=== PATIENT | female | born 1975 | race Caucasian/White ===

== ENCOUNTER 2019-05-03 22:42 | Emergency (ER) | payer BC ==
[2019-05-03 23:21] LABS: CHLORIDE,CL 110 mmol/L (98-107); SODIUM,NA 144 mmol/L (136-145)
[2019-05-03] MEDS ORDERED: Potassium Chloride 20 MEQ Tab.ER PO ONE (23:24)
--- NOTE | 2019-05-03 23:30 | EDM.PDOC ---
ED HPI GENERAL MEDICAL PROBLEM - General Chief Complaint: Chest Pain Stated Complaint: chest pain resolved Time Seen by Provider: 05/03/19 22:50 Source of Information: Reports: Patient History Limitations: Reports: No Limitations - History of Present Illness INITIAL COMMENTS - FREE TEXT/NARRATIVE: Acute onset of left sided chest pain Has hx/o same in past HAs NTG at home Diid take NTG and pain is now resolved Here to be checked Onset: Sudden Duration: Hour(s): Location: Reports: Chest Quality: Reports: Sharp Severity: Moderate Associated Symptoms: Reports: Chest Pain - Related Data Allergies Allergy/AdvReac Type Severity Reaction Status Date / Time Penicillins Allergy Vomiting Verified 05/03/19 22:59 Home Meds: Home Meds Amlodipine/Valsartan/Hcthiazid [Bzlph-Nahjf-Yker 10-160-12.5MG] 1 each PO DAILY 05/03/19 [History] Desvenlafaxine [Desvenlafaxine ER] 50 mg PO DAILY 05/03/19 [History] Erenumab-Aooe [Aimovig Autoinjector] 1 injection SUBCUT Q30D 05/03/19 [History] Naltrexone 4.5 mg PO DAILY 05/03/19 [History] Nitroglycerin [Nitrostat] 0.4 mg SL ASDIRECTED 05/03/19 [History] Topiramate 1 tab PO DAILY 05/03/19 [History] hydrOXYzine HCL [Atarax] 25 - 50 mg PO BEDTIME PRN 05/03/19 [History] lamoTRIgine [Lamotrigine] 1 tab PO DAILY 05/03/19 [History] tiZANidine [Zanaflex] 4 mg PO Q8H PRN 05/03/19 [History] valACYclovir HCl [valACYclovir] 0.5 tab PO DAILY 05/03/19 [History] Past Medical History HEENT History: Reports: Impaired Vision Cardiovascular History: Reports: Angina, Hypertension Respiratory History: Reports: None Gastrointestinal History: Reports: GERD Genitourinary History: Reports: None [employer] History: Reports: Musculoskeletal History: Reports: Fibromyalgia Neurological History: Reports: Migraines Psychiatric History: Reports: Bipolar Endocrine/Metabolic History: Reports: Obesity/BMI 30+ Hematologic History: Reports: None Oncologic (Cancer) History: Reports: None Dermatologic History: Reports: Other (See Below) Other Dermatologic History: chronic cold sores - Infectious Disease History Infectious Disease History: Reports: Chicken Pox, Influenza - Past Surgical History HEENT Surgical History: Reports: Myringotomy w Tube(s) Cardiovascular Surgical History: Reports: None Respiratory Surgical History: Reports: None GI Surgical History: Reports: None Female Surgical History: Reports: Tubal Ligation Musculoskeletal Surgical History: Reports: None Social & Family History - Tobacco Use Smoking Status *Q: Former Smoker Used Tobacco, but Quit: Yes Month/Year Tobacco Last Used: August 2006 - Caffeine Use Caffeine Use: Reports: Coffee - Recreational Drug Use Recreational Drug Use: No ED ROS GENERAL - Review of Systems Review Of Systems: See Below Respiratory: Reports: No Symptoms Cardiovascular: Reports: Chest Pain GI/Abdominal: Reports: No Symptoms ED EXAM, GENERAL - Physical Exam Exam: See Below Exam Limited By: No Limitations General Appearance: No Apparent Distress Throat/Mouth: Normal Oropharynx Neck: Supple Respiratory/Chest: Lungs Clear Cardiovascular: Regular Rate, Rhythm GI/Abdominal: Non-Tender Extremities: No Pedal Edema Course - Vital Signs Last Recorded V/S: Last Vital Signs Temp 36.2 C 05/03/19 22:45 Pulse 61 05/03/19 23:15 Resp 18 05/03/19 23:15 BP 142/77 H 05/03/19 23:15 Pulse Ox 97 05/03/19 23:15 - Orders/Labs/Meds Orders: Active Orders 24 hr Category Date Time Status EKG Documentation Completion [RC] ASDIRECTED Care 05/03/19 22:51 Active EKG 12 Lead [EK] Routine Ther 05/03/19 22:50 Ordered Labs: Laboratory Tests 05/03/19 05/03/19 Range/Units 23:00 23:00 WBC 7.5 (4.0-10.2) K/uL RBC 3.91 (3.77-5.09) M/uL Hgb 12.1 (11.7-15.5) g/dL Hct 35.7 (34.0-46.0) % MCV 91.3 (84.0-98.0) fL MCH 30.9 (28.2-33.3) pg MCHC 33.9 (31.7-36.0) g/dL RDW 12.6 (11.2-14.1) % Plt Count 244 (150-350) K/uL Neut % (Auto) 47.5 (45.0-80.0) % Lymph % (Auto) 42.0 (10.0-50.0) % Schuyler % (Auto) 7.8 (2.0-14.0) % Eos % (Auto) 2.4 (0.0-5.0) % Baso % (Auto) 0.3 (0.0-2.0) % Neut # (Auto) 3.55 (1.40-7.00) K/uL Lymph # (Auto) 3.13 (0.50-3.50) K/uL Schuyler # (Auto) 0.58 (0.00-1.00) K/uL Eos # (Auto) 0.18 (0.00-0.50) K/uL Baso # (Auto) 0.02 (0.00-0.20) K/uL Sodium 144 (136-145) mmol/L Potassium 2.8 L* (3.5-5.1) mmol/L Chloride 110 H (98-107) mmol/L Carbon Dioxide 24.5 (21.0-32.0) mmol/L BUN 21 H (7-18) mg/dL Creatinine 0.71 (0.51-1.17) mg/dL Est Cr Clr Drug Dosing 98.50 mL/min Estimated GFR (MDRD) > 60 mL/min Glucose 157 H (74-106) mg/dL Calcium 7.9 L (8.5-10.1) mg/dL Total Bilirubin 0.2 (0.2-1.0) mg/dL AST 11 L (15-37) U/L ALT 25 (12-78) U/L Alkaline Phosphatase 56 (46-116) IU/L Troponin I 0.000 (0.000-0.056) ng/mL Total Protein 6.6 (6.4-8.2) g/dL Albumin 3.2 L (3.4-5.0) g/dL Meds: Medications Discontinued Medications Generic Name Dose Route Start Last Admin Trade Name Freq PRN Reason Stop Dose Admin Potassium Chloride 40 meq 05/03/19 23:24 Klor-Con M20 PO 05/03/19 23:25 ONETIME ONE - Re-Assessments/Exams Free Text/Narrative Re-Assessment/Exam: 05/03/19 23:28 Pt stable in ER NO chest pain Pt given Kcl 40 eEq in ER Departure - Departure Time of Disposition: 23:30 Disposition: Home, Self-Care 01 Clinical Impression: Hypokalemia Chest pain Qualifiers: Chest pain type: unspecified Qualified Code(s): R07.9 - Chest pain, unspecified Instructions: Nonspecific Chest Pain, [id number] Referrals: Esa Rivas MD [Primary Care Provider] - Additional Instructions: Rx Kcl daily Follow up in clinic Return to ER if recurs Sepsis Event Note - Evaluation Sepsis Screening Result: No Definite Risk - Focused Exam Vital Signs: Vital Signs Temp Pulse Resp BP Pulse Ox 05/03/19 23:15 61 18 142/77 H 97 05/03/19 23:00 63 20 132/78 98 05/03/19 22:45 36.2 C 96 20 153/91 H 97 Date Exam was Performed: 05/03/19 Time Exam was Performed: 23:26 - My Orders Last 24 Hours: My Active Orders 05/03/19 22:50 EKG 12 Lead [EK] Routine 05/03/19 22:51 EKG Documentation Completion [RC] ASDIRECTED - Assessment/Plan Last 24 Hours: My Active Orders 05/03/19 22:50 EKG 12 Lead [EK] Routine 05/03/19 22:51 EKG Documentation Completion [RC] ASDIRECTED
== END 2019-05-03 23:43 | disposition home or self-care (01) ==
LOC: LL.ED 22:42
DX: R07.9 Chest pain, unspecified (principal); E87.6 Hypokalemia; I10 Essential (primary) hypertension; K21.9 Gastro-esophageal reflux disease without esophagitis; F31.9 Bipolar disorder, unspecified; E66.9 Obesity, unspecified; Z68.39 Body mass index [BMI] 39.0-39.9, adult; Z87.891 Personal history of nicotine dependence; Z88.0 Allergy status to penicillin; Z79.899 Other long term (current) drug therapy
CPT/HCPCS: 36415; 80053; 84484; 85025; 93005; 99285-25; A9270-GY

== ENCOUNTER 2023-08-18 11:28 | Day surgery (SDC) | payer BC ==
[~2023-08-18 11:28] MED LIST: Midazolam 1 MG/ML 2 ML SDV ONE; Propofol 200 MG/20 ML SDV ONE
[2023-08-18] MEDS ORDERED: Sodium Chloride 0.9% 10 ML Syringe FLUSH PRN (11:30)
[2023-08-18] MEDS: Lactated Ringers 1,000 ML IV SCH (12:18)
[2023-08-18] MEDS ORDERED: Glycopyrrolate 0.2 MG/ML SDV IVPUSH ONE (12:48)
[2023-08-18] MEDS ORDERED: Propofol 200 MG/20 ML SDV ONE (13:13)
== END 2023-08-18 14:06 | disposition home or self-care (01) ==
LOC: LL.SDS 11:28
PROVIDERS: ATTEND Surgery
DX: K63.5 Polyp of colon (principal); K52.9 Noninfective gastroenteritis and colitis, unspecified; K63.89 Other specified diseases of intestine; K21.9 Gastro-esophageal reflux disease without esophagitis; I10 Essential (primary) hypertension; E66.9 Obesity, unspecified; Z68.37 Body mass index [BMI] 37.0-37.9, adult; Z79.899 Other long term (current) drug therapy
CPT/HCPCS: 00813; J2250; J2704; J3490; J7120